=== PATIENT | male | born 1965 | race Caucasian/White ===

== ENCOUNTER 2017-11-27 09:28 | Emergency (ER) | payer OTHER ==
[~2017-11-27] VITALS: Ht 175.3 cm; Wt 96.5 kg
[2017-11-27 09:29] VITALS: BP 136/86; PULSE 80; RESP 14; TEMP 98.1; O2SAT 96
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
[2017-11-27] MEDS ORDERED: IBUPROFEN 800 MG TAB PO ONE (10:30)
[2017-11-27] MEDS ORDERED: METHOCARBAMOL 500 MG TAB PO ONE (10:30)
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
[2017-11-27] MEDS ORDERED: IBUP1TAB7 PO (12:02)
[2017-11-27] MEDS ORDERED: ROBA500T PO (12:02)
== END 2017-11-27 12:20 | disposition home or self-care (01) ==
LOC: NEPK 09:28
DX: G44.309 Post-traumatic headache, unspecified, not intractable (principal); S59.901A Unspecified injury of right elbow, initial encounter; S39.92XA Unspecified injury of lower back, initial encounter; S09.92XA Unspecified injury of nose, initial encounter; M79.642 Pain in left hand; M79.641 Pain in right hand; V43.52XA Car driver injured in collision with other type car in traffic accident, initial encounter
CPT/HCPCS: 70160; 70450; 72100; 73080; 99285